=== PATIENT | male | born 1990 | race Caucasian/White ===

== ENCOUNTER 2023-07-15 10:46 | Emergency (ER) | payer OTHER, MEDICAID, SELFPAY ==
[2023-07-15 11:24] VITALS: BP 141/70; PULSE 70; RESP 16; TEMP 36.3; O2SAT 97; BMI 29.2
--- NOTE | 2023-07-15 11:50 | ED.WOUNDLAC ---
HPI - Wound/Laceration <Dakota Aragon PA-C - Last Filed: 07/15/23 12:01> General Chief Complaint: Wound/Laceration Stated Complaint: per pt infected lacerations Time Seen by Provider: 07/15/23 11:39 History of Present Illness HPI narrative: This is a 32-year-old male presents emergency department due to concerns for a few abrasions and cuts on his left fingers becoming infected. He has a scabbed over abrasion that he received about a week ago to his left hand as well as a small 1 on his left 5th finger. Denies any spreading redness, fevers, increased pain or tightness around the joints, or any other concerning signs or symptoms. Related Data Previous Rx's Medication Instructions Recorded doxycycline hyclate 100 mg capsule 100 mg PO BID 5 days #10 caps 07/15/23 Review of Systems <Dakota Aragon PA-C - Last Filed: 07/15/23 12:01> Review of Systems Narrative: GENERAL: Denies chills, fatigue, malaise, fever, sweats. HEENT: Denies sinus pain, ear pain, sore throat, difficulty swallowing, dizziness. RESPIRATORY: Denies dyspnea, cough, wheezing, hemoptysis, sputum. CARDIOVASCULAR: Denies chest pain, palpitations, orthopnea, edema, GASTROINTESTINAL: Denies nausea, vomiting, abdominal pain, diarrhea, constipation, melena. : Denies dysuria, frequency, incontinence, hematuria, urinary retention. MUSCULOSKELETAL: denies weakness, joint pain, or bony pain SKIN: Left hand abrasions NEUROLOGIC: Denies weakness, headache, numbness, change in speech, confusion, seizures, incoordination. PSYCHIATRIC: No concerning psychosocial issues. 12 point review of systems is negative except for those stated above Exam <Dakota Aragon PA-C - Last Filed: 07/15/23 12:01> Narrative Exam Narrative: GENERAL: Well-developed patient, in mild distress. HEAD: Atraumatic. Normocephalic. EYES: Pupils equal round and reactive. Extraocular motions intact. No scleral icterus. No injection or drainage. ENT: Nose without bleeding, purulent drainage. Throat without erythema, tonsillar hypertrophy or exudate. Airway patent. NECK: Trachea midline. Non tender CARDIOVASCULAR: Regular rate and rhythm without murmurs, gallops, or rubs. RESPIRATORY: Clear to auscultation. Breath sounds equal bilaterally. No wheezes, rales, or rhonchi. GASTROINTESTINAL: Abdomen soft, non-tender, nondistended. EXTREMITIES: No edema or joint tenderness. BACK: Nontender without deformity or crepitance. No flank tenderness. NEURO: AOx3. SKIN: 1 small scabbed over abrasion to the left 5th digit with minimal spreading erythema, no purulent drainage. Another scab over the thumb of the left hand with minimal spreading erythema and no purulent drainage. No changes in range of motion. Very minimally tender to the touch. No pain with passive extension of any of the fingers. No purulent drainage Initial Vital Signs Initial Vital Signs: Vital Signs Temperature 97.4 F L 07/15/23 11:24 Pulse Rate 70 07/15/23 11:24 Respiratory Rate 16 07/15/23 11:24 Blood Pressure 141/70 H 07/15/23 11:24 Pulse Oximetry 97 07/15/23 11:24 Oxygen Delivery Method Room Air 07/15/23 11:24 <Khushbu Arboleda DO - Last Filed: 07/15/23 17:05> Initial Vital Signs Initial Vital Signs: Vital Signs Temperature 97.4 F L 07/15/23 11:24 Pulse Rate 70 07/15/23 11:24 Respiratory Rate 16 07/15/23 11:24 Blood Pressure 141/70 H 07/15/23 11:24 Pulse Oximetry 97 07/15/23 11:24 Oxygen Delivery Method Room Air 07/15/23 11:24 Course <Dakota Aragon PA-C - Last Filed: 07/15/23 12:01> Vital Signs Vital signs: Vital Signs - 8 hr 07/15/23 11:24 Temperature 97.4 F L Pulse Rate 70 Respiratory Rate 16 Blood Pressure 141/70 H Pulse Oximetry 97 Oxygen Delivery Method Room Air <DO Senait Salinas Last Filed: 07/15/23 17:05> Vital Signs Vital signs: Vital Signs - 8 hr 07/15/23 11:24 Temperature 97.4 F L Pulse Rate 70 Respiratory Rate 16 Blood Pressure 141/70 H Pulse Oximetry 97 Oxygen Delivery Method Room Air MDM - Wound/Laceration <AV Roach Last Filed: 07/15/23 12:01> MDM Narrative Medical decision making narrative: MDM * differential diagnosis includes but not limited to skin infection, flexor tenosynovitis, cellulitis * Prior records reviewed: Patient has not been to the emergency department the past. * My lab interpretation: None obtained * My imgaing interpretation: None obtained * Clinical Decision Rules/Scores evaluated: None * Independent discussions with: None ED Course: This is a 32-year-old male presents to the emergency department due to evaluation of a few small scabs to his left hand. On exam there was no purulent drainage and minimal spreading erythema although patient was quite concerned that they had become infected. Shared decision-making utilized and eventually antibiotics were prescribed. He does have a history of MRSA we will cover for that. Shared Decision Making: Discussed plan with patient who is comfortable with the plan Social Considerations: None Disposition: Discharged to home Discharge Plan Departure Patient Disposition: Home Clinical Impression: Visit for wound check Instructions: DI for Wound Infection Activity Restrictions/Additional Instructions: Thank you for coming to the [facility] Emergency Department today. Please continue to keep the wounds clean and monitor for any worsening signs of infection such as spreading redness, purulent drainage, or any other concerning findings. You may begin taking the oral antibiotics to avoid any kind of infection. I hope you feel better soon. Please follow up with your primary care provider within a week if your symptoms continue. If you do not have a primary care provider please contact the [facility] Resource line at [phone]. They will ask some questions about your medical history and help you get set up with a provider in the community. Prescriptions: New doxycycline hyclate 100 mg capsule 100 mg PO BID 5 Days Qty: 10 0RF Stand Alone Forms: Patient Portal/API ED Sign-out <Khushbu Arboleda, DO - Last Filed: 07/15/23 17:05> Cosign ED Attending Sheela Attestation: I was immediately available in the department for consultation.
== END 2023-07-15 12:12 | disposition home or self-care (01) ==
PROVIDERS: Emergency Provider Physician Assistant Medical
DX: S60.417A Abrasion of left little finger, initial encounter (principal); S60.312A Abrasion of left thumb, initial encounter; X58.XXXA Exposure to other specified factors, initial encounter
CPT/HCPCS: 99281; 99282

== ENCOUNTER 2023-07-26 18:42 | Emergency (ER) | payer OTHER, MEDICAID, SELFPAY ==
[2023-07-26 19:00] VITALS: BP 144/69; PULSE 79; RESP 16; TEMP 36.6; O2SAT 98; BMI 29.2
--- NOTE | 2023-07-26 23:19 | ED_ITS ---
HPI - Skin/Abscess/Foreign Bdy General Chief complaint: Skin/Abscess/Foreign Body Stated complaint: Left hand infection Time Seen by Provider: 07/26/23 23:19 Source: patient Mode of arrival: Ambulatory History of Present Illness HPI narrative: Patient 32-year-old healthy male who presents today with left finger wound. He was seen evaluated here on the with probable infection he was discharged home on doxycycline. He finished the antibiotics 2 days ago he thinks that it is still infected. He is no fever chills or redness. He not the scab off of it he feels like he squeezed it and got some pus out. He is worried because he p reviously had MRSA. Related Data Previous Rx's Medication Instructions Recorded mupirocin 2 % topical ointment 1 applictn topical BID #15 grams 07/26/23 Allergies Allergy/AdvReac Type Severity Reaction Status Date / Time No Known Drug Allergies Allergy Verified 07/26/23 19:00 Review of Systems Review of Systems ROS Unobtainable: All systems reviewed & are unremarkable except as noted in HPI and below Patient History Social History Smoking Status: Current every day smoker Smoking Status: Current every day smoker alcohol intake frequency: 0-2 drinks per day Substance Use Type: does not use Exam Initial Vital Signs Initial Vital Signs: Vital Signs Temperature 97.8 F 07/26/23 19:00 Pulse Rate 79 07/26/23 19:00 Respiratory Rate 16 07/26/23 19:00 Blood Pressure 144/69 H 07/26/23 19:00 Pulse Oximetry 98 07/26/23 19:00 Oxygen Delivery Method Room Air 07/26/23 19:00 GENERAL: Alert well-appearing 32-year-old male CARDIOVASCULAR: peripheral pulses in tact, cap refill <2 sec RESPIRATORY: No respiratory distress, speaks in full sentences without difficulty EXTREMITIES: Normal range of motion, no clubbing or edema. Neurovascularly intact NEUROLOGICAL: Cranial nerves II through XII grossly intact. Normal gait and speech. SKIN: Left index finger healing wound no significant erythema no fluctuation good skin tissue Course Vital Signs Vital signs: Vital Signs - 8 hr 07/26/23 19:00 Temperature 97.8 F Pulse Rate 79 Respiratory Rate 16 Blood Pressure 144/69 H Pulse Oximetry 98 Oxygen Delivery Method Room Air MDM - Skin/Abscess/Foreign Bdy MDM Narrative Medical decision making narrative: Well-appearing 32-year-old male has nonhealing wound but no evidence infection. Recommend supportive care topical antibiotic ointment needed only. No evidence of flexor tenosynovitis and abscess or ulcer Discharge Plan Departure Patient Disposition: Home Clinical Impression: Open wound of left index finger Instructions: Minor Wounds (Alternative Therapy) Activity Restrictions/Additional Instructions: *You have been diagnosed with left index finger wound *What to do: At this time no need for pill antibiotics. Keep clean with soap and water continue to monitor. Recommend keeping it covered while at work and letting it air out at night and at home. *Continue to take medications as directed Mupirocin ointment twice daily *Follow up with your primary care provider in 2-3 days or call [phone] *Return to ER if you should have increasing redness decreased range of motion fever increase or any new, worsening or concerning symptoms Prescriptions: New mupirocin 2 % ointment 1 applictn TOP BID Qty: 15 0RF Stand Alone Forms: Patient Portal/API
--- NOTE | 2023-07-26 23:19 | PC.NURSE ---
pt has open wound to the outer second digit, appears crusty without any drainage at this time, pt states it has been draining and he took a course of antibiotics but the area did not completely heal
== END 2023-07-26 23:29 | disposition home or self-care (01) ==
PROVIDERS: Emergency Provider Emergency Medicine
DX: S61.211A Laceration without foreign body of left index finger without damage to nail, initial encounter (principal); X58.XXXA Exposure to other specified factors, initial encounter
CPT/HCPCS: 99281; 99282

== ENCOUNTER 2023-08-01 12:02 | Emergency (ER) | payer OTHER, MEDICAID, SELFPAY ==
[2023-08-01 12:10] VITALS: BP 122/79; PULSE 68; RESP 18; TEMP 36.4; O2SAT 99; BMI 28.5
--- NOTE | 2023-08-01 14:37 | PC.NURSE ---
Called 3 times to come back to an ER room and no answer
== END 2023-08-01 14:39 | disposition left against medical advice (07) ==
PROVIDERS: Emergency Provider Emergency Medicine
DX: Z53.21 Procedure and treatment not carried out due to patient leaving prior to being seen by health care provider (principal)
CPT/HCPCS: 99281